=== PATIENT | male | born 1995 | race African-American/Black ===

== ENCOUNTER 2018-04-17 16:38 | Emergency (ER) | payer BC ==
[~2018-04-17] VITALS: Ht 182.9 cm; Wt 72.6 kg
[2018-04-17] MEDS ORDERED: IBUP800T19 PO (17:31)
--- NOTE | 2018-04-17 17:32 | PHYS DOC ---
Past History Past Medical History: No Pertinent History Past Surgical History: No Surgical History Alcohol Use: Rarely Drug Use: None Adult General Chief Complaint Chief Complaint: WRIST PAIN HPI HPI 23-year-old left-handed male patient states he had a 2-3 cm cyst in dorsal side of left wrist for a while and today when he was doing exercise, he felt a pop in his wrist and the cyst was disappeared and he thinks he burst the cyst. Patient denies other injuries and focal neuro deficit Review of Systems Review of Systems Constitutional: Denies fever or chills [] Eyes: Denies change in visual acuity, redness, or eye pain [] HENT: Denies nasal congestion or sore throat [] Respiratory: Denies cough or shortness of breath [] Cardiovascular: No additional information not addressed in HPI [] GI: Denies abdominal pain, nausea, vomiting, bloody stools or diarrhea [] : Denies dysuria or hematuria [] Musculoskeletal: Denies back pain , reports joint pain [] Integument: Denies rash or skin lesions [] Neurologic: Denies headache, focal weakness or sensory changes [] Endocrine: Denies polyuria or polydipsia [] All other systems were reviewed and found to be within normal limits, except as documented in this note. Allergies Allergies Allergies Coded Allergies Type Severity Reaction Last Updated Verified Penicillins Allergy Unknown 04/17/18 Yes amoxicillin Allergy Unknown 04/17/18 Yes Physical Exam Physical Exam Constitutional: Well developed, well nourished, no acute distress, non-toxic appearance. [] HENT: Normocephalic, atraumatic Eyes: PERRLA, EOMI, conjunctiva normal, no discharge. [] Neck: Normal range of motion, no tenderness, supple, no stridor. [] Cardiovascular:Heart rate regular rhythm, no murmur [] Lungs & Thorax: Bilateral breath sounds clear to auscultation [] Extremities: Left wrist without deformity or edema or sign of injury, mild painful range of motion, no tenderness, no cyanosis, no clubbing, no edema. [] Neurologic: Alert and oriented X 3, normal motor function, normal sensory function, no focal deficits noted. [] Psychologic: Affect normal, judgement normal, mood normal. [] Current Patient Data Vital Signs Vital Signs Date Time Temp Pulse Resp B/P (MAP) Pulse Ox O2 Delivery O2 Flow Rate FiO2 04/17/18 16:50 98.2 79 16 95 Room Air Radiology/Procedures Radiology/Procedures [] Course & Med Decision Making Course & Med Decision Making Pertinent imaging study reviewed. (See chart for details) Evaluation of patient in ER showed 23-year-old left-handed male patient with a injury to left wrist and disappearing of a synovial cyst. Patient had unremarkable physical exam and x-ray of his wrist. Plan to apply a Velcro splint on left wrist and instruction to take ibuprofen and apply ice on his wrist. Dragon Disclaimer Dragon Disclaimer This electronic medical record was generated, in whole or in part, using a voice recognition dictation system. Departure Departure: Impression: Primary Impression: Left wrist sprain Disposition: HOME, SELF-CARE (at 1730) Condition: STABLE Referrals: PCP,UCHE (PCP) Patient Instructions: Wrist Sprain with [facility]hab[facility] Additional Instructions: Apply ice on the affected area Follow-up with your primary care physician in 3-5 days Return to ER if not getting better Scripts Ibuprofen (IBUPROFEN) 800 Mg Tablet 1 TAB PO TID, #30 TAB Prov: JAKE BARAJAS MD 04/17/18 JAKE BARAJAS MD Apr 17, 2018 17:32
[2018-04-17 17:40] VITALS: BP 145/65
--- NOTE | 2018-04-17 19:27 | RAD ---
Three-view left wrist radiographs 04/17/2018 CLINICAL HISTORY: Left wrist injury. PA, lateral and oblique digital radiographs of the left wrist were obtained. No fracture or dislocation of the left wrist is seen. No radiopaque foreign body is noted. IMPRESSION: No fracture or dislocation of the left wrist is seen. Electronically signed by: Brannon Wing MD (04/17/2018 7:23 PM) [facility]
== END 2018-04-17 17:40 | disposition home or self-care (01) ==
LOC: ER 16:38
DX: S63.502A Unspecified sprain of left wrist, initial encounter (principal); Z88.0 Allergy status to penicillin; Z88.1 Allergy status to other antibiotic agents; X50.0XXA Overexertion from strenuous movement or load, initial encounter; Y93.B9 Activity, other involving muscle strengthening exercises; Y92.89 Other specified places as the place of occurrence of the external cause; Y99.8 Other external cause status
CPT/HCPCS: 29125; 73110; 99284

== ENCOUNTER 2020-02-15 04:48 | Emergency (ER) | payer BC, MEDICAID ==
[~2020-02-15] VITALS: Ht 182.9 cm; Wt 71.8 kg
[~2020-02-15 04:48] MED LIST: IBUP800T19 PO
--- NOTE | 2020-02-15 04:50 | PHYS DOC ---
Past History Past Medical History: No Pertinent History (HOLLY WATTERS MD) Past Surgical History: No Surgical History (HOLLY WATTERS MD) Alcohol Use: Rarely Drug Use: None (HOLLY WATTERS MD) General Adult HPI: HPI: ".. I was working at the [employer] and all sudden got to feeling really hot...shaking..and then dizzy...I told them to take me home.. but said I need to come here..." Patient is a 24 year old male who presents with above hx and complaints of fever, chills and dizzy. Patient denies any recent cough, congestion, fevers. No history of travel or specific ill contacts. Has not traveled outside the [place] area except to [place] to visit his parents a month ago. Patient denies any past medical history other than allergies which he takes [id number] Claritin and other anti-allergy meds. Patient does not get flu vaccinations. Patient denies any drug use. Patient only follows with Dr. Dickey. (HOLLY WATTERS MD) Review of Systems: Review of Systems: Constitutional: Denies fever or chills Eyes: Denies change in visual acuity HENT: Denies nasal congestion or sore throat Respiratory: Denies cough or shortness of breath Cardiovascular: Denies chest pain or edema GI: Denies abdominal pain, nausea, vomiting, bloody stools or diarrhea : Denies dysuria Musculoskeletal: Denies back pain or joint pain Integument: Denies rash Neurologic: Denies headache, focal weakness or sensory changes Endocrine: Denies polyuria or polydipsia Lymphatic: Denies swollen glands Psychiatric: Denies depression or anxiety (HOLLY WATTERS MD) Heart Score: Risk Factors: Risk Factors: DM, Current or recent (<one month) smoker, HTN, HLP, family history of CAD, obesity. Risk Scores: Score 0 - 3: 2.5% MACE over next 6 weeks - Discharge Home Score 4 - 6: 20.3% MACE over next 6 weeks - Admit for Clinical Observation Score 7 - 10: 72.7% MACE over next 6 weeks - Early Invasive Strategies (HOLLY WATTERS MD) Allergies: Allergies: Allergies Coded Allergies Type Severity Reaction Last Updated Verified Penicillins Allergy Unknown 04/17/18 Yes amoxicillin Allergy Unknown 04/17/18 Yes (HOLLY WATTERS MD) Physical Exam: PE: Constitutional: Well developed, well nourished, no acute distress, non-toxic appearance. [] HENT: Normocephalic, atraumatic, bilateral external ears normal, oropharynx moist, no oral exudates, nose normal. [] Eyes: PERRLA, EOMI, conjunctiva normal, no discharge. [] Neck: Normal range of motion, no tenderness, supple, no stridor. [] Cardiovascular:Heart rate regular rhythm, no murmur [] Lungs & Thorax: Bilateral breath sounds clear to auscultation [] Abdomen: Bowel sounds normal, soft, no tenderness, no masses, no pulsatile masses. [] Skin: Warm, dry, no erythema, no rash. [] Back: No tenderness, no CVA tenderness. [] Extremities: No tenderness, no cyanosis, no clubbing, ROM intact, no edema. [] Neurologic: Alert and oriented X 3, normal motor function, normal sensory function, no focal deficits noted. [] Psychologic: Affect normal, judgement normal, mood normal. [] (HOLLY WATTERS MD) EKG: EKG: [] (HOLLY WATTERS MD) Radiology/Procedures: Radiology/Procedures: [] (HOLLY WATTERS MD) Course & Med Decision Making: Course & Med Decision Making Pertinent Labs and Imaging studies reviewed. (See chart for details) [] (HOLLY WATTERS MD) Dragon Disclaimer: Dragon Disclaimer: This electronic medical record was generated, in whole or in part, using a voice recognition dictation system. (HOLLY WATTERS MD) Departure Departure: Impression: Primary Impression: Tremor Additional Impression: Dehydration Disposition: 01 HOME/RESIDENCE PRIOR TO ADM Condition: STABLE Referrals: PCP,NO (PCP) Patient Instructions: Dehydration, Adult, Form - Excuse from Work, School, or Physical Activity HOLLY WATTERS MD Feb 15, 2020 04:50 CONSTANCE MENDOZA Jr. DO Feb 15, 2020 06:46
[2020-02-15] MEDS ORDERED: IV RINGERS SOLUTION,LACTATED 1,000 ML IV SCH (05:30)
[2020-02-15 05:36] LABS: BASO # 0.1 x10^3/uL (0.0-0.2); BASO % 1 % (0-3); EOS # 0.3 x10^3/uL (0.0-0.7); EOS % 4 % (0-3); HEMATOCRIT 42.9 % (39.0-53.0); LYMPH # 2.1 x10^3/uL (1.0-4.8); LYMPH % 32 % (24-48); MEAN CORPUSCULAR HEMOGLOBIN 29 pg (25-35); MEAN CORPUSCULAR HGB CONC 33 g/dL (31-37); MEAN CORPUSCULAR VOLUME 88 fL (79-100); MONO # 0.6 x10^3/uL (0.0-1.1); MONO % 9 % (0-9); NEUT # 3.6 x10^3uL (1.8-7.7); NEUT % 55 % (31-73); PLATELET COUNT 166 x10^3/uL (140-400); RED BLOOD COUNT 4.85 x10^6/uL (4.30-5.70); RED CELL DISTRIBUTION WIDTH 13.5 % (11.5-14.5); WHITE BLOOD COUNT 6.7 x10^3/uL (4.0-11.0)
[2020-02-15 05:42] LABS: BACTERIA,URINE 0 /HPF (0-FEW); BILIRUBIN,URINE NEG (NEG); CLARITY,URINE CLEAR; COLOR,URINE YELLOW; GLUCOSE,URINE NEG (NEG); NITRITE,URINE NEG (NEG); RBC,URINE RARE /HPF (0-2); UROBILINOGEN,URINE 0.2 mg/dL (0.2 mg/dL); WBC,URINE RARE /HPF (0-4)
[2020-02-15 05:45] LABS: CREATININE 1.2 mg/dL (0.7-1.3); GFR 91.6; POTASSIUM 3.7 mmol/L (3.5-5.1)
[2020-02-15 05:46] LABS: BARBITURATES NEG (NEG); BENZODIAZEPINES NEG (NEG); CANNABINOIDS NEG (NEG); COCAINE NEG (NEG); METHADONE NEG (NEG); OPIATES NEG (NEG); PHENCYCLIDINE NEG (NEG)
[2020-02-15 05:48] LABS: AMPHETAMINE/METHAMPHETAMINE NEG (NEG)
[2020-02-15 06:00] LABS: ALBUMIN 3.8 g/dL (3.4-5.0); DIRECT BILIRUBIN 0.1 mg/dL (0.0-0.2); TOTAL BILIRUBIN 0.1 mg/dL (0.2-1.0); TOTAL PROTEIN 7.2 g/dL (6.4-8.2)
--- NOTE | 2020-02-15 06:08 | RAD ---
EXAM: PA and Lateral Views of the Chest DATE: 02/15/2020 5:14 AM INDICATION: fever, dizzy COMPARISON: 11/14/2015 FINDINGS: The heart is not enlarged. Mediastinal and hilar contours are normal. No focal parenchymal airspace opacity. No pleural effusion or pneumothorax. IMPRESSION: 1. No radiographic evidence for acute cardiopulmonary process. Electronically signed by: Nahid Arvizu MD (02/15/2020 6:05 AM) [facility]
--- NOTE | 2020-02-15 06:39 | EKG ---
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
[2020-02-15 06:44] VITALS: BP 126/95
== END 2020-02-15 07:04 | disposition home or self-care (01) ==
LOC: ER 04:48
DX: R25.1 Tremor, unspecified (principal); E86.0 Dehydration; Z88.0 Allergy status to penicillin; Z88.1 Allergy status to other antibiotic agents
CPT/HCPCS: 36415; 71046; 80048; 80076; 80307; 81001; 82550; 82947; 83605; 83735; 84443; 84484; 85025; 85610; 85730; 86140; 87040; 93005; 96360; 99285; J7120